=== PATIENT | female | born 1960 | race African-American/Black ===

== ENCOUNTER 2016-07-13 11:27 | Observation (INO) | payer OTHER ==
[~2016-07-13] VITALS: Ht 165.1 cm; Wt 74.4 kg
--- NOTE | 2016-07-13 11:35 | PHYS DOC ---
Adult General Chief Complaint Chief Complaint: WEAKNESS/GENERALIZED HPI HPI Patient is a 56 year old female who presents with chest discomfort. She states it started 2 days ago secondary sensation in her anterior chest, that is constant nothing makes it better or worse. She states that she's been belching more often over the last several days. She has a history of hypertension and is on some hormone replacement therapy. She does have family history of coronary disease were mom just had 4 stents in her brother had an OK recently. She denies any recent travel or leg pain. She denies any history of smoking or tobacco abuse. She's never had a stress test. Review of Systems Review of Systems Constitutional: Denies fever or chills [] Eyes: Denies change in visual acuity, redness, or eye pain [] HENT: Denies nasal congestion or sore throat [] Respiratory: Denies cough or shortness of breath [] Cardiovascular: No additional information not addressed in HPI [] GI: Denies abdominal pain, nausea, vomiting, bloody stools or diarrhea [] : Denies dysuria or hematuria [] Musculoskeletal: Denies back pain or joint pain [] Integument: Denies rash or skin lesions [] Neurologic: Denies headache, focal weakness or sensory changes [] Endocrine: Denies polyuria or polydipsia [] Current Medications Current Medications Current Medications Medications (Trade) Dose Ordered Sig/Los Start Time Stop Time Status Last Admin Dose Admin Aspirin (Artem Aspirin) 325 mg 1X ONCE 07/13/16 14:45 07/13/16 14:46 DC Ondansetron HCl (Zofran) 4 mg PRN Q8HRS PRN 07/13/16 14:45 07/14/16 14:44 Allergies Allergies Allergies Coded Allergies Type Severity Reaction Last Updated Verified lisinopril Allergy Severe Swelling 07/13/16 Yes Physical Exam Physical Exam Constitutional: Well developed, well nourished, no acute distress, non-toxic appearance. [] HENT: Normocephalic, atraumatic, bilateral external ears normal, oropharynx moist, no oral exudates, nose normal. [] Eyes: PERRLA, EOMI, conjunctiva normal, no discharge. [] Neck: Normal range of motion, no tenderness, supple, no stridor. [] Cardiovascular:Heart rate regular rhythm, no murmur [] Lungs & Thorax: Bilateral breath sounds clear to auscultation [] Abdomen: Bowel sounds normal, soft, no tenderness, no masses, no pulsatile masses. [] Skin: Warm, dry, no erythema, no rash. [] Back: No tenderness, no CVA tenderness. [] Extremities: No tenderness, no cyanosis, no clubbing, ROM intact, no edema. [] Neurologic: Alert and oriented X 3, normal motor function, normal sensory function, no focal deficits noted. [] Psychologic: Affect normal, judgement normal, mood normal. [] Current Patient Data Vital Signs Vital Signs Date Time Temp Pulse Resp B/P (MAP) Pulse Ox O2 Delivery O2 Flow Rate FiO2 07/13/16 11:40 97.9 66 18 169/85 (113) 97 Room Air 97.9 Lab Values Laboratory Tests Test 07/13/16 12:45 White Blood Count 6.3 x10^3/uL (4.0-11.0) Red Blood Count 4.26 x10^6/uL (3.50-5.40) Hemoglobin 13.3 g/dL (12.0-15.5) Hematocrit 41.0 % (36.0-47.0) Mean Corpuscular Volume 96 fL (79-100) Mean Corpuscular Hemoglobin 31 pg (25-35) Mean Corpuscular Hemoglobin Concent 32 g/dL (31-37) Red Cell Distribution Width 12.7 % (11.5-14.5) Platelet Count 223 x10^3/uL (140-400) Neutrophils (%) (Auto) 78 % (31-73) H Lymphocytes (%) (Auto) 15 % (24-48) L Monocytes (%) (Auto) 5 % (0-9) Eosinophils (%) (Auto) 1 % (0-3) Basophils (%) (Auto) 1 % (0-3) Neutrophils # (Auto) 4.9 x10^3uL (1.8-7.7) Lymphocytes # (Auto) 0.9 x10^3/uL (1.0-4.8) L Monocytes # (Auto) 0.3 x10^3/uL (0.0-1.1) Eosinophils # (Auto) 0.1 x10^3/uL (0.0-0.7) Basophils # (Auto) 0.1 x10^3/uL (0.0-0.2) Prothrombin Time 11.7 SEC (11.7-14.0) Prothrombin Time INR 0.9 (0.8-1.1) Sodium Level 140 mmol/L (136-145) Potassium Level 3.5 mmol/L (3.5-5.1) Chloride Level 103 mmol/L (98-107) Carbon Dioxide Level 27 mmol/L (21-32) Anion Gap 10 (6-14) Blood Urea Nitrogen 10 mg/dL (7-20) Creatinine 0.9 mg/dL (0.6-1.0) Estimated GFR (Cockcroft-Gault) 77.8 Glucose Level 85 mg/dL (70-99) Calcium Level 9.7 mg/dL (8.5-10.1) Magnesium Level 2.2 mg/dL (1.8-2.4) Total Bilirubin 0.9 mg/dL (0.2-1.0) Direct Bilirubin 0.2 mg/dL (0.0-0.2) Aspartate Amino Transferase (AST) 15 U/L (15-37) Alanine Aminotransferase (ALT) 17 U/L (14-59) Alkaline Phosphatase 59 U/L (46-116) Creatine Kinase 69 U/L (26-192) Creatine Kinase MB (Mass) < 0.5 ng/mL (0.0-3.6) Creatine Kinase MB Relative Index % (0-4) UY-Xki-A-Type Natriuretic Peptide 125 pg/mL (0-124) H Total Protein 8.6 g/dL (6.4-8.2) H Albumin 4.1 g/dL (3.4-5.0) Lipase 141 U/L (73-393) Thyroid Stimulating Hormone (TSH) 1.972 uIU/mL (0.358-3.74) Laboratory Tests 07/13/16 12:45 Laboratory Tests 07/13/16 12:45 EKG EKG EKG shows normal sinus with a rate of [address] elevations, T-wave inversions noted in lead 3, aVF, V1 through V3, left axis deviation, QTC 390 ms , as interpreted by me. Radiology/Procedures Radiology/Procedures [facility] [address] [place], [place] [id number] IMAGING REPORT Signed PATIENT: MICKI WILKES ACCOUNT: [id number] : 1960 LOCATION: ER AGE: 56 SEX: F EXAM STATUS: PRE ER ORD. PHYSICIAN: VALENCIA RIVAS MD REASON: chest pain PROCEDURE: PORTABLE CHEST 1V Indication chest heaviness. Single view of the chest was obtained. Comparison is made to a study 10/09/2006. There is mild cardiomegaly. There is no gross congestive heart failure. There is no consolidated pneumonia. No pleural fluid or pneumothorax is seen. Visualized bony structures appear grossly intact. IMPRESSION: Mild cardiomegaly. No acute or focal process seen in the chest DICTATED and SIGNED BY: TRUNG BRADFORD MD DATE: 07/13/16 121 CC: VALENCIA RIVAS MD ~ Impressions: Chest pain Hypertension Course & Med Decision Making Course & Med Decision Making Pertinent Labs and Imaging studies reviewed. (See chart for details) Patient has chest discomfort with T-wave inversions in lead 3, V1 through V3, chest x-ray shows mild congestion, labs are nonacute. Patient is being admitted for chest pain rule out and cardiology consultation. Patient's agreeable plans in stable condition this time. Aspirin has been given. Dragon Disclaimer Dragon Disclaimer This electronic medical record was generated, in whole or in part, using a voice recognition dictation system. Departure Departure Impression: Primary Impression: Chest pain Disposition: ADMITTED INPATIENT Admitting Physician: Mervat Chaves Condition: STABLE Problem Qualifiers Primary Impression: Chest pain Chest pain type: unspecified Qualified Codes: R07.9 - Chest pain, unspecified VALENCIA RIVAS MD July 13, 2016 11:35
--- NOTE | 2016-07-13 11:48 | EKG ---
[facility] [address] [place] [address] Test Date: 2016-07-13 Test Time: 11:38:03 Pat Name: MICKI WILKES Department: Room: Gender: F Social Security Benefits Interviewer: TIFFANIE : 1960 Requested By: VALENCIA RIVAS Order Number: [id number] Reading MD: Sharron Gallardo Measurements Intervals Felt Rate: 56 P: 12 TX: 188 QRS: -6 QRSD: 80 T: -5 QT: 402 QTc: 390 Interpretive Statements SINUS RHYTHM LEFTWARD AXIS QRS(T) CONTOUR ABNORMALITY CONSISTENT WITH ANTEROSEPTAL INFARCT AGE UNDETERMINED RI6.01 Unconfirmed report No previous ECG available for comparison Electronically Signed On 07-13-2016 18:25:48 CDT by Sharron Gallardo
[2016-07-13] MEDS ORDERED: BISO1TAB7 PO (11:50)
[2016-07-13] MEDS ORDERED: LOSA50TA6 PO (11:50)
--- NOTE | 2016-07-13 12:17 | RAD ---
Indication chest heaviness. Single view of the chest was obtained. Comparison is made to a study 10/09/2006. There is mild cardiomegaly. There is no gross congestive heart failure. There is no consolidated pneumonia. No pleural fluid or pneumothorax is seen. Visualized bony structures appear grossly intact. IMPRESSION: Mild cardiomegaly. No acute or focal process seen in the chest
[2016-07-13 12:56] LABS: BASO # 0.1 x10^3/uL (0.0-0.2); BASO % 1 % (0-3); EOS % 1 % (0-3); HEMOGLOBIN 13.3 g/dL (12.0-15.5); LYMPH # 0.9 x10^3/uL (1.0-4.8); LYMPH % 15 % (24-48); MEAN CORPUSCULAR HEMOGLOBIN 31 pg (25-35); MEAN CORPUSCULAR HGB CONC 32 g/dL (31-37); MEAN CORPUSCULAR VOLUME 96 fL (79-100); MONO % 5 % (0-9); NEUT % 78 % (31-73); PLATELET COUNT 223 x10^3/uL (140-400); RED BLOOD COUNT 4.26 x10^6/uL (3.50-5.40); RED CELL DISTRIBUTION WIDTH 12.7 % (11.5-14.5); WHITE BLOOD COUNT 6.3 x10^3/uL (4.0-11.0)
[2016-07-13 13:07] LABS: INR 0.9 (0.8-1.1); PROTHROMBIN TIME PATIENT 11.7 SEC (11.7-14.0)
[2016-07-13 13:21] LABS: CREATINE KINASE 69 U/L (26-192)
[2016-07-13 13:22] LABS: CKMB MASS < 0.5 ng/mL (0.0-3.6)
[2016-07-13 13:41] LABS: CALCIUM 9.7 mg/dL (8.5-10.1); CREATININE 0.9 mg/dL (0.6-1.0); GFR 77.8; POTASSIUM 3.5 mmol/L (3.5-5.1)
[2016-07-13 13:48] LABS: ALBUMIN 4.1 g/dL (3.4-5.0); DIRECT BILIRUBIN 0.2 mg/dL (0.0-0.2); MAGNESIUM 2.2 mg/dL (1.8-2.4); TOTAL BILIRUBIN 0.9 mg/dL (0.2-1.0); TOTAL PROTEIN 8.6 g/dL (6.4-8.2)
[2016-07-13] MEDS ORDERED: ASPIRIN 325 MG TABLET PO ONE (14:45)
[2016-07-13] MEDS ORDERED: ONDANSETRON PF 4 MG/2 ML VIAL. IV PRN (14:45)
--- NOTE | 2016-07-13 15:06 | PDOC1 ---
History and Physical Date of Admission Date of Admission DATE: 07/13/16 TIME: 15:01 Identification/Chief Complaint Chief Complaint CP Problems: Source Source: Caregiver, Chart review, Patient History of Present Illness History of Present Illness 56 y.o pleasant AA female, hx HTN, coems in bec of 2 day hx intermittent substernal CP, at rest, no identifiable or alleviating factors, strong fam hx CAD brother and mother (none younger than age 55), Duration is continuous, no associated diaphoresis or syncopal sxs, NOn smoker, non drinker, has a heart murmur though audible grade 4/6 at sternal border which seems not new to her, EKg shows t wave inversion but CKMB is neg, trop pending, CArds has been consulted and is planned for stress test, has never had MPI done before She describes the pain as heavy sensation like someone sitting on her chest She is CP free at ER watching tv SBp was 140s on arrival Past Medical History Cardiovascular: HTN Past Surgical History Past Surgical History: No pertinent history Family History Family History: Heart Disease, High Cholestrol, Hypertension Social History Smoke: No ALCOHOL: none Drugs: None Current Problem List Problem List Problems Medical Problems: (1) Chest pain Status: Acute Problems: Current Medications Current Medications Current Medications Aspirin (Artem Aspirin) 325 mg 1X ONCE PO ; Start 07/13/16 at 14:45; Stop at 14:46; Status DC Ondansetron HCl (Zofran) 4 mg PRN Q8HRS PRN IV NAUSEA/VOMITING; Start 07/13/16 at 14:45; Stop 07/14/16 at 14:44 Active Scripts Active Reported Losartan Potassium 50 Mg Tablet 50 Mg PO DAILY Bisoprolol-Hctz 10-6.25 Mg Tab (Bisoprolol Fumarate/Hctz) 1 Each Tablet 1 Tab PO DAILY Allergies Allergies: Coded Allergies: lisinopril (Verified Allergy, Severe, Swelling, 07/13/16) ROS General: No: Chills, Night Sweats, Fatigue, Malaise, Appetite, Other PSYCHOLOGICAL ROS: No: Anxiety, Behavioral Disorder, Concentration difficultie , Decreased libido, Depression, Disorientation, Hallucinations, Hostility, Irritablity, Memory difficulties, Mood Swings, Obsessive thoughts, Physical abuse, Sexual abuse, Sleep disturbances, Suicidal ideation, Other Eyes: No Blurry vision, No Decreased vision, No Double vision, No Dry eyes, No Excessive tearing, No Eye Pain, No Itchy Eyes, No Loss of vision, No Photophobia , No Scotomata, No Uses contacts, No Uses glasses, No Other HEENT: No: Heacaches, Visual Changes, Hearing change, Nasal congestion, Nasal discharge, Oral lesions, Sinus pain, Sore Throat, Epistaxis, Sneezing, Snoring, Tinnitus, Vertigo, Vocal changes, Other ALLERGY AND IMMUNOLOGY: No: Hives, Insect Bite Sensitivity, Itchy/Watery Eyes, Nasal Congestion, Post Nasal Drip, Seasonal Allergies, Other Hematological and Lymphatic: No: Bleeding Problems, Blood Clots, Blood Transfusions, Brusing, Night Sweats, Pallor, Swollen Lymph Nodes, Other ENDOCRINE: No: Breast Changes, Galactorrhea, Hair Pattern Changes, Hot Flashes , Malaise/lethargy, Mood Swings, Palpitations, Polydipsia/polyuria, Skin Changes , Temperature Intolerance, Unexpected Weight Changes, Other Breast: No New/Changing Breast Lumps, No Nipple changes, No Nipple discharge, No Other Respiratory: No: Cough, Hemoptysis, Orthopnea, Pleuritic Pain, Shortness of breath, SOB with excertion, Sputum Changes, Stridor, Tachypnea, Wheezing, Other Cardiovascular: No Chest Pain, No Palpitations, No Orthopnea, No Paroxysmal Noc. Dyspnea, No Edema, No Lt Headedness, No Other Gastrointestinal: No Nausea, No Vomiting, No Abdominal Pain, No Diarrhea, No Constipation, No Melena, No Hematochezia, No Other Genitourinary: No Dysuria, No Frequency, No Incontinence, No Hematuria, No Retention, No Discharge, No Urgency, No Pain, No Flank Pain, No Other, No , No , No , No , No , No , No Musculoskeletal: No Gait Disturbance, No Joint Pain, No Joint Stiffness, No Joint Swelling, No Muscle Pain, No Muscular Weakness, No Pain In:, No Swelling In:, No Other Neurological: No Behavorial Changes, No Bowel/Bladder ControlChng, No Confusion , No Dizziness, No Gait Disturbance, No Headaches, No Impaired Coord/balance, No Memory Loss, No Numbness/Tingling, No Seizures, No Speech Problems, No Tremors, No Visual Changes, No Weakness, No Other Skin: No Dry Skin, No Eczema, No Hair Changes, No Lumps, No Mole Changes, No Mottling, No Nail Changes, No Pruritus, No Rash, No Skin Lesion Changes, No Other, No Acne Physical Exam General: Alert, Oriented X3, Cooperative, No acute distress HEENT: Atraumatic, PERRLA Lungs: Clear to auscultation, Normal air movement Heart: S1S2, other (positive grade 3-4/6 systolci murmur left sternal border) Abdomen: Normal bowel sounds, Soft, No tenderness, No hepatosplenomegaly, No masses Rectal Exam: not examined PELVIC: Nml ext genitalia Extremities: No clubbing, No cyanosis, No edema, Normal pulses, No tenderness/ swelling Skin: No rashes, No breakdown, No significant lesion Neuro: Normal gait, Normal speech, Strength at 5/5 X4 ext, Normal tone, Sensation intact, Cranial nerves 3-12 NL, Reflexes 2+ Psych/Mental Status: Mental status NL, Mood NL Vitals Vitals Vital Signs Date Time Temp Pulse Resp B/P (MAP) Pulse Ox O2 Delivery O2 Flow Rate FiO2 07/13/16 11:40 97.9 66 18 169/85 (113) 97 Room Air 97.9 Labs Labs Laboratory Tests Test 07/13/16 12:45 White Blood Count 6.3 x10^3/uL (4.0-11.0) Red Blood Count 4.26 x10^6/uL (3.50-5.40) Hemoglobin 13.3 g/dL (12.0-15.5) Hematocrit 41.0 % (36.0-47.0) Mean Corpuscular Volume 96 fL (79-100) Mean Corpuscular Hemoglobin 31 pg (25-35) Mean Corpuscular Hemoglobin Concent 32 g/dL (31-37) Red Cell Distribution Width 12.7 % (11.5-14.5) Platelet Count 223 x10^3/uL (140-400) Neutrophils (%) (Auto) 78 % (31-73) Lymphocytes (%) (Auto) 15 % (24-48) Monocytes (%) (Auto) 5 % (0-9) Eosinophils (%) (Auto) 1 % (0-3) Basophils (%) (Auto) 1 % (0-3) Neutrophils # (Auto) 4.9 x10^3uL (1.8-7.7) Lymphocytes # (Auto) 0.9 x10^3/uL (1.0-4.8) Monocytes # (Auto) 0.3 x10^3/uL (0.0-1.1) Eosinophils # (Auto) 0.1 x10^3/uL (0.0-0.7) Basophils # (Auto) 0.1 x10^3/uL (0.0-0.2) Prothrombin Time 11.7 SEC (11.7-14.0) Prothromb Time International Ratio 0.9 (0.8-1.1) Sodium Level 140 mmol/L (136-145) Potassium Level 3.5 mmol/L (3.5-5.1) Chloride Level 103 mmol/L (98-107) Carbon Dioxide Level 27 mmol/L (21-32) Anion Gap 10 (6-14) Blood Urea Nitrogen 10 mg/dL (7-20) Creatinine 0.9 mg/dL (0.6-1.0) Estimated GFR (Cockcroft-Gault) 77.8 Glucose Level 85 mg/dL (70-99) Calcium Level 9.7 mg/dL (8.5-10.1) Magnesium Level 2.2 mg/dL (1.8-2.4) Total Bilirubin 0.9 mg/dL (0.2-1.0) Direct Bilirubin 0.2 mg/dL (0.0-0.2) Aspartate Amino Transf (AST/SGOT) 15 U/L (15-37) Alanine Aminotransferase (ALT/SGPT) 17 U/L (14-59) Alkaline Phosphatase 59 U/L (46-116) Creatine Kinase 69 U/L (26-192) Creatine Kinase MB (Mass) < 0.5 ng/mL (0.0-3.6) Creatine Kinase MB Relative Index % (0-4) KL-Twx-L-Type Natriuretic Peptide 125 pg/mL (0-124) Total Protein 8.6 g/dL (6.4-8.2) Albumin 4.1 g/dL (3.4-5.0) Lipase 141 U/L (73-393) Thyroid Stimulating Hormone (TSH) 1.972 uIU/mL (0.358-3.74) Laboratory Tests Test 5/7/17 12:45 White Blood Count 6.3 x10^3/uL (4.0-11.0) Red Blood Count 4.26 x10^6/uL (3.50-5.40) Hemoglobin 13.3 g/dL (12.0-15.5) Hematocrit 41.0 % (36.0-47.0) Mean Corpuscular Volume 96 fL (79-100) Mean Corpuscular Hemoglobin 31 pg (25-35) Mean Corpuscular Hemoglobin Concent 32 g/dL (31-37) Red Cell Distribution Width 12.7 % (11.5-14.5) Platelet Count 223 x10^3/uL (140-400) Neutrophils (%) (Auto) 78 % (31-73) Lymphocytes (%) (Auto) 15 % (24-48) Monocytes (%) (Auto) 5 % (0-9) Eosinophils (%) (Auto) 1 % (0-3) Basophils (%) (Auto) 1 % (0-3) Neutrophils # (Auto) 4.9 x10^3uL (1.8-7.7) Lymphocytes # (Auto) 0.9 x10^3/uL (1.0-4.8) Monocytes # (Auto) 0.3 x10^3/uL (0.0-1.1) Eosinophils # (Auto) 0.1 x10^3/uL (0.0-0.7) Basophils # (Auto) 0.1 x10^3/uL (0.0-0.2) Prothrombin Time 11.7 SEC (11.7-14.0) Prothromb Time International Ratio 0.9 (0.8-1.1) Sodium Level 140 mmol/L (136-145) Potassium Level 3.5 mmol/L (3.5-5.1) Chloride Level 103 mmol/L (98-107) Carbon Dioxide Level 27 mmol/L (21-32) Anion Gap 10 (6-14) Blood Urea Nitrogen 10 mg/dL (7-20) Creatinine 0.9 mg/dL (0.6-1.0) Estimated GFR (Cockcroft-Gault) 77.8 Glucose Level 85 mg/dL (70-99) Calcium Level 9.7 mg/dL (8.5-10.1) Magnesium Level 2.2 mg/dL (1.8-2.4) Total Bilirubin 0.9 mg/dL (0.2-1.0) Direct Bilirubin 0.2 mg/dL (0.0-0.2) Aspartate Amino Transf (AST/SGOT) 15 U/L (15-37) Alanine Aminotransferase (ALT/SGPT) 17 U/L (14-59) Alkaline Phosphatase 59 U/L (46-116) Creatine Kinase 69 U/L (26-192) Creatine Kinase MB (Mass) < 0.5 ng/mL (0.0-3.6) Creatine Kinase MB Relative Index % (0-4) BI-Vyq-H-Type Natriuretic Peptide 125 pg/mL (0-124) Total Protein 8.6 g/dL (6.4-8.2) Albumin 4.1 g/dL (3.4-5.0) Lipase 141 U/L (73-393) Thyroid Stimulating Hormone (TSH) 1.972 uIU/mL (0.358-3.74) VTE Prophylaxis Ordered VTE Prophylaxis Devices: Yes VTE Pharmacological Prophylaxi: Yes Assessment/Plan Assessment/Plan 1. CP r./o ACS 2. HTN 3. HEart murmur PLAN: Echo Cards consult Cycle CE NPO post MN for MPI champ jackson nd ER HECTOR Nicholas MD July 13, 2016 15:06
[2016-07-13 16:00] VITALS: BP 171/82
--- NOTE | 2016-07-13 18:52 | ACF ---
Admission Forms Criteria CARDIOLOGY GRG Clinical Indications for Admission to Inpatient Care ( Place 'X' for any and all applicable criteria): Hospital admission is needed for appropriate care of the patient because of ANY ONE of the following (1): [ ] I. Hemodynamic instability as indicated by ALL of the following (1)(2)(3) (4)(5) [ ]a) Vital signs or other findings not as expected for chronic patient condition or baseline [ ]b) Instability indicated by ANY ONE of the following: [ ]i) Hypotension [ ]ii) Symptomatic Tachycardia unresponsive to treatment ( e.g., analgesia, fluids, sedation as indicated) [ ]iii) Inadequate perfusion indicated by ANY ONE of the following: [ ] 1) Lactic acidosis (> 2 mmol/L) [ ] 2) New abnormal capillary refill (> 3 seconds) [ ] 3) Reduced urine output [ ] 4) New altered mental status [ ]iv) Orthostatic vital sign changes unresponsive to treatment (e.g., fluids) [ ]v) IV inotropic or vasopressor medication required to maintain adequate blood pressure or perfusion [ ] II. Severe heart failure as indicated by ANY ONE of the following(17)(18) [ ]a) Respiratory distress [ ]b) Hypotension [ ]c) Anasarca (refractory to outpatient therapy) [ ]d) Cardiac arrhythmias of immediate concern [ ]e) Myocardial ischemia [ ] III. Cardiac arrhythmias or findings of immediate concern indicated by ANY ONE of the following (19)(20): [ ] a) Heart rhythms that are inherently dangerous or unstable indicated by ANY ONE of the following (21)(22)(23): [ ] i) Resuscitated ventricular fibrillation or cardiac arrest [ ] ii) Ventricular escape rhythm [ ] iii) Sustained ventricular tachycardia (30 seconds or more of ventricular rhythm at greater than 100 beats per minute) [ ] iv) Nonsustained ventricular tachycardia and ANY ONE of the following: [ ] 1) Suspected cardiac ischemia as cause or consequence of ventricular tachycardia [ ] 2) In setting of acute myocarditis [ ] b) Unstable cardiac conduction defects indicated by ANY ONE of the following(23)(24)(25) [ ] i) Type II second-degree atrioventricular block [ ]ii) Third-degree atrioventricular block [ ]iii) New-onset left bundle branch block with suspected myocardial ischemia [ ]c) Any heart rhythm and ANY ONE of the following (21)(22)(26)(27) (28) [ ] i) Continuous long-term ECG monitoring needed (e.g., initiation of drug requiring monitoring for more than 24 hours) [ ] ii) Patient has automatic implanted cardioverter defibrillator that is repeatedly firing, malfunctioning, or in need of immediate adjustment of settings beyond the scope of ambulatory or observation care [ ]d) Heart rhythms of concern due to ANY ONE of the following: [ ] i) Hypotension [ ] ii) Respiratory distress [ ] iii) Association with other significant symptoms (e.g., bradycardia with syncope or ongoing dizziness, supraventricular tachycardia with chest pain (14)(15)(17) [ ] IV. Monitoring for cardiac contusion beyond the scope of observation care needed [A](30)(31)(32) [ ] V. Surgical or device complication (e.g., valve replacement complication , pacemaker dysfunction) (35)(41)(44)(45)(46) [ ] . Inpatient palliative care needed. [B](49) Also use Inpatient Palliative Care Criteria [ ] VII. Nonbacterial thrombotic (marantic) endocarditis (36)(43)(47)(48) [X] VIII. Cardiology condition, symptom, or finding for which emergency and observation care has failed or are not considered appropriate. [ ] IX. Acute valvular disease requiring inpatient as indicated by ANY ONE of the following (41) [ ]a) Acute valvular regurgitation (42) [ ]b) Noninfectious valvulitis (43) [ ]c) Obstructive valve thrombosis [ ]d) Paravalvular leak [ ]e) Other significant valvular disorder remaining after emergency or observation level of care (as appropriate) [ ]X. Pericardial disease requiring inpatient treatment as indicated by ANY ONE of the following (33)(34)(35)(36)(37) [ ]a) Suspected tamponade (38)(39)(40) [ ]b) Hemopericardium [ ]c) Other significant pericardial disorder remaining after emergency or observation level of care (as appropriate) [ ] XI. Cardiac ischemia beyond scope of emergency and observation care. [ ] XII. Hypertension requiring inpatient treatment as indicated by ANY ONE of the following (6)(7)(8) [ ]a) SBP greater than 220 mm Hg or DBP greater than 120 mmHg despite treatment [ ]b) SBP greater than 140 mm Hg or DBP greater than 100 mm Hg with evidence of acute end organ damage as indicated by ANY ONE of the following [ ] i) Encephalopathy [ ] ii) Acute renal failure as indicated by new onset of ANY ONE of the following (9)(10)(11)(12)(13) [ ]1) 3-fold rise in serum creatinine from baseline [ ]2) Serum creatinine greater than 4 mg/dL ( 354 micromoles/L) with acute rise greater than 0.5 mg/dL (44.2 micromoles/L) [ ]3) Reduction of more than 75% in estimated glomerular filtration rate from baseline [ ]4) Estimated glomerular filtration rate less than 35 mL/min/1.73m2 (0.59 mL/sec/1.73m2) in child up to 18 years of age [ ]5) Cessation of urine output indicated by ALL of the following [ ]A. Adequate volume status [ ]B. Inadequate urine output as indicated by ANY ONE of the following [ ]a. Urine output less than 0.3 mL/kg/hr for 24 hours [ ]b. Anuria (urine output less than 0.1 mL/kg/hr) for 12 hours [ ] iii) Aortic dissection [ ] iv) Myocardial Ischemia [ ] v) Left ventricular heart failure [ ]vi) Retinal Hemorrhage [ ]vii) Other significant finding [ ]c) Hypertension in child requiring inpatient treatment as indicated by ALL of the following(14)(15)(16) [ ] i) Outpatient treatment not effective, not available, or not appropriate [ ]ii) SBP or DBP greater than 95th percentile for age [ ]iii) Evidence of acute end organ damage as indicated by ANY ONE of the following [ ]1) Altered mental status [ ]2) Acute renal failure as indicated by new onset of ANY ONE of the following(9)(10)(11)(12)(13) [ ]A. 3-fold rise in serum creatinine from baseline [ ]B. Serum creatinine greater than 4 mg/dL (354 micromoles/L) with acute rise greater than 0.5 mg/dL (44.2 micromoles/L) [ ]C. Reduction of more than 75% in estimated glomerular filtration rate from baseline [ ]D. Estimated glomerular filtration rate less than 35 mL/min/1.73m2 (0.59 mL/sec/1.73m2) in child up to 18 years of age [ ]E. Cessation of urine output indicated by ALL of the following [ ]a. Adequate volume status [ ]b. Inadequate urine output as indicated by ANY ONE of the following [ ]i) Urine output less than 0.3 mL/kg/hr for 24 hours [ ]ii) Anuria ( urine output less than 0.1 mL/kg/hr) for 12 hours [ ]3) Severe headache [ ]4) Visual disturbance [ ]5) Retinal hemorrhage [ ]6) Other significant finding [ ]XIII. Complications of transplanted heart indicated by ANY ONE of the following(61): [ ]a) Acute graft rejection requiring inpatient management (eg, intravenous immunosuppression)(62)(63) [ ]b) Acute graft heart failure indicated by ANY ONE of the following(64): [ ]i) Hemodynamic instability [ ]ii) Cardiac arrhythmias of immediate concern [ ]iii) Pulmonary edema that is very severe (eg, mechanical ventilation needed, imminent or likely, need for 100% oxygen to keep oxygen saturation above 90%) [ ]iv) Pulmonary edema that is persistent as indicated by ALL of the following: [ ]1) New need for oxygen therapy to keep oxygen saturation above 90% (or increased FiO2 need from baseline) [ ]2) Has not improved sufficiently with emergency department or observation care IV diuretics or other heart failure treatments[E] [ ]v) Altered mental status that is severe or persistent [ ]vi) Increased creatinine (new on laboratory test) with reduction of more than 50% in estimated glomerular filtration rate from baseline [ ]vii) Progressively (ongoing) rising creatinine (known from past laboratory test) with reduction of more than 25% in estimated glomerular filtration rate from baseline [ ]viii) Acute renal failure [ ]ix) Acute peripheral ischemia (eg, examination shows pulseless, cool, mottled, or cyanotic extremity) [ ]x) Pulmonary artery catheter monitoring needed [ ]xi) Other sign or symptom of heart failure requiring inpatient treatment (ie, too severe or not responsive to outpatient and observation care treatment) [ ]c) Infection requiring inpatient management (eg, Hemodynamic instability, need for intravenous antimicrobial treatment)(66)(67)(68)(69)(70) [ ]d) Cardiac allograft vasculopathy requiring inpatient management ( eg evidence of cardiac ischemia)(71) [ ]e) Other complication of transplanted heart (eg, stroke, severe pulmonary hypertension, severe valvular dysfunction) requiring inpatient management(72) The original [facility] content created by [facility] has been revised. The portions of the content which have been revised are identified through the use of italic text or in bold, and [facility] has neither reviewed nor approved the modified material. All other unmodified content is copyright [facility]. Please see references footnoted in the original [facility] edition 2016 Admission Criteria Met?: Yes SHARI DICK July 13, 2016 18:52
[2016-07-13 19:00] VITALS: BP 138/90
[2016-07-13] MEDS ORDERED: [UNRECOGNIZED DRUG - OTHER] (20:04)
[2016-07-13 23:00] VITALS: BP 135/81
[2016-07-14 03:00] VITALS: BP 132/86
[2016-07-14 04:05] LABS: BASO % 1 % (0-3); EOS % 3 % (0-3); HEMATOCRIT 34.9 % (36.0-47.0); HEMOGLOBIN 11.4 g/dL (12.0-15.5); LYMPH # 1.3 x10^3/uL (1.0-4.8); LYMPH % 24 % (24-48); MEAN CORPUSCULAR HEMOGLOBIN 32 pg (25-35); MEAN CORPUSCULAR HGB CONC 33 g/dL (31-37); MEAN CORPUSCULAR VOLUME 97 fL (79-100); MONO % 8 % (0-9); NEUT % 65 % (31-73); PLATELET COUNT 192 x10^3/uL (140-400); RED BLOOD COUNT 3.61 x10^6/uL (3.50-5.40); RED CELL DISTRIBUTION WIDTH 12.4 % (11.5-14.5); WHITE BLOOD COUNT 5.3 x10^3/uL (4.0-11.0)
[2016-07-14 04:21] LABS: CALCIUM 8.8 mg/dL (8.5-10.1); CREATININE 0.8 mg/dL (0.6-1.0); GFR 89.1; POTASSIUM 3.5 mmol/L (3.5-5.1)
[2016-07-14 07:00] VITALS: BP 139/88
[2016-07-14] MEDS ORDERED: ATENOLOL 50 MG TABLET. PO SCH (09:00)
[2016-07-14] MEDS ORDERED: hydroCHLOROthiazide 25 MG TABLET PO SCH (09:00)
[2016-07-14] MEDS ORDERED: LOSARTAN POTASSIUM 50 MG TABLET. PO SCH (09:00)
[2016-07-14] MEDS ORDERED: HCTZ PO SCH (09:00)
[2016-07-14] MEDS ORDERED: BISOPROLOL FUMARATE PO SCH (09:00)
--- NOTE | 2016-07-14 09:04 | PDOC2 ---
NEETU TRACY PHYSICIAN OFFICE ASSISTANT 07/14/16 0904: CARDIAC CONSULT DATE OF CONSULT Date of Consult DATE: 07/14/16 TIME: 08:58 REASON FOR CONSULT Reason for Consult: Chest pain REFERRING PHYSICIAN Referring Physician: Elham SOURCE Source: Chart review, Patient HISTORY OF PRESENT ILLNESS HISTORY OF PRESENT ILLNESS This is a pleasant 56 yo female admitted for complains of chest pain. Reports that she has been belching a lot since the last 4 days. Actually had some episodes when she tried to take a deep breath and felt like she could not take in air. Reports that during this time she also was having a nonradiating mid chest pressure and tightness. Sometimes felt like she has some palpitations but with all of these symptoms she felt that it is more anxiety. No nausea or vomiting. Heractivity is as follows 2-4 miles 4 x weekly with tolerance and no significant WILSON. Reports that also during those times that she was having symptoms she was also having MALDONADO mainly at her forehead which was dull not associated with auditory or visual disturbances and no facial tingling. Denies any hx of migraine but she does take progesterone/estradiol treatment and is a nonsmoker. She blames the MALDONADO from her BP which was running 140-150/90 at that time but she was suspecting possibly from ASA use which she only took when she was having her CP. She does take her medications regularly, denies any excessive caffeinated beverage use, no recreational drug use. No hx of GERD, PUD, VTE, falls, injury, or any recent long distance travels. However she has been noted with MIRIAM symptoms including snoring, daytime fatigue and with her MALDONADO. Spouse is suspicious also of MIRIAM as he recorded her sleeping. PAST MEDICAL HISTORY Cardiovascular: HTN Pulmonary: No pertinent hx CENTRAL NERVOUS SYSTEM: Other (No pertinent history) GI: No pertinent hx Heme/Onc: No pertinent hx Hepatobiliary: No pertinent hx Psych: No pertinent hx Musculoskeletal: Osteoarthritis Rheumatologic: No pertinent hx Infectious disease: No pertinent hx Renal/: Other (menopausal/hot flashes) Endocrine: No pertinent hx Dermatology: No pertinent hx PAST SURGICAL HISTORY Past Surgical History: Tonsillectomy FAMILY HISTORY Family History: Coronary Artery Disease (2 brother and mother with 1 brother young noted with heart inflammation) SOCIAL HISTORY Smoke: No ALCOHOL: occassional Drugs: None Lives: with Family CURRENT MEDICATIONS CURRENT MEDICATIONS Current Medications Medications (Trade) Dose Ordered Sig/Los Route PRN Reason Start Time Stop Time Status Last Admin Dose Admin Aspirin (Artem Aspirin) 325 mg 1X ONCE PO 07/13/16 14:45 07/13/16 14:46 DC 07/13/16 15:09 ALLERGIES ALLERGIES: Coded Allergies: lisinopril (Verified Allergy, Severe, Swelling, 07/13/16) ROS Review of System 14 point ROS evaluated with pertinent positives noted per HPI PHYSICAL EXAM General: Alert, Oriented X3, Cooperative, No acute distress HEENT: Atraumatic, Mucous membr. moist/pink Lungs: Clear to auscultation, Normal air movement Heart: Regular rate (SR), Normal S1, Normal S2, Other (3/6 systolic murmur to LLS border) Abdomen: Soft, No tenderness Extremities: No cyanosis, No edema Skin: No breakdown, No significant lesion Neuro: Normal speech, Sensation intact Psych/Mental Status: Mental status NL, Mood NL MUSCULOSKELETAL: Osteoarthritic changes both hands VITALS VITALS Vital Signs Date Time Temp Pulse Resp B/P (MAP) Pulse Ox O2 Delivery O2 Flow Rate FiO2 07/14/16 07:00 97.8 60 20 139/88 (105) 96 Room Air 97.8 LABS Lab: Laboratory Tests Test 07/13/16 12:45 07/13/16 14:33 07/13/16 20:30 07/14/16 02:55 White Blood Count 6.3 x10^3/uL (4.0-11.0) 5.3 x10^3/uL (4.0-11.0) Red Blood Count 4.26 x10^6/uL (3.50-5.40) 3.61 x10^6/uL (3.50-5.40) Hemoglobin 13.3 g/dL (12.0-15.5) 11.4 g/dL (12.0-15.5) Hematocrit 41.0 % (36.0-47.0) 34.9 % (36.0-47.0) Mean Corpuscular Volume 96 fL (79-100) 97 fL (79-100) Mean Corpuscular Hemoglobin 31 pg (25-35) 32 pg (25-35) Mean Corpuscular Hemoglobin Concent 32 g/dL (31-37) 33 g/dL (31-37) Red Cell Distribution Width 12.7 % (11.5-14.5) 12.4 % (11.5-14.5) Platelet Count 223 x10^3/uL (140-400) 192 x10^3/uL (140-400) Neutrophils (%) (Auto) 78 % (31-73) 65 % (31-73) Lymphocytes (%) (Auto) 15 % (24-48) 24 % (24-48) Monocytes (%) (Auto) 5 % (0-9) 8 % (0-9) Eosinophils (%) (Auto) 1 % (0-3) 3 % (0-3) Basophils (%) (Auto) 1 % (0-3) 1 % (0-3) Neutrophils # (Auto) 4.9 x10^3uL (1.8-7.7) 3.4 x10^3uL (1.8-7.7) Lymphocytes # (Auto) 0.9 x10^3/uL (1.0-4.8) 1.3 x10^3/uL (1.0-4.8) Monocytes # (Auto) 0.3 x10^3/uL (0.0-1.1) 0.4 x10^3/uL (0.0-1.1) Eosinophils # (Auto) 0.1 x10^3/uL (0.0-0.7) 0.2 x10^3/uL (0.0-0.7) Basophils # (Auto) 0.1 x10^3/uL (0.0-0.2) 0.0 x10^3/uL (0.0-0.2) Prothrombin Time 11.7 SEC (11.7-14.0) Prothromb Time International Ratio 0.9 (0.8-1.1) Sodium Level 140 mmol/L (136-145) 141 mmol/L (136-145) Potassium Level 3.5 mmol/L (3.5-5.1) 3.5 mmol/L (3.5-5.1) Chloride Level 103 mmol/L (98-107) 106 mmol/L (98-107) Carbon Dioxide Level 27 mmol/L (21-32) 27 mmol/L (21-32) Anion Gap 10 (6-14) 8 (6-14) Blood Urea Nitrogen 10 mg/dL (7-20) 11 mg/dL (7-20) Creatinine 0.9 mg/dL (0.6-1.0) 0.8 mg/dL (0.6-1.0) Estimated GFR (Cockcroft-Gault) 77.8 89.1 Glucose Level 85 mg/dL (70-99) 81 mg/dL (70-99) Calcium Level 9.7 mg/dL (8.5-10.1) 8.8 mg/dL (8.5-10.1) Magnesium Level 2.2 mg/dL (1.8-2.4) Total Bilirubin 0.9 mg/dL (0.2-1.0) Direct Bilirubin 0.2 mg/dL (0.0-0.2) Aspartate Amino Transf (AST/SGOT) 15 U/L (15-37) Alanine Aminotransferase (ALT/SGPT) 17 U/L (14-59) Alkaline Phosphatase 59 U/L (46-116) Creatine Kinase 69 U/L (26-192) Creatine Kinase MB (Mass) < 0.5 ng/mL (0.0-3.6) Creatine Kinase MB Relative Index % (0-4) FN-Wsx-M-Type Natriuretic Peptide 125 pg/mL (0-124) Total Protein 8.6 g/dL (6.4-8.2) Albumin 4.1 g/dL (3.4-5.0) Lipase 141 U/L (73-393) Thyroid Stimulating Hormone (TSH) 1.972 uIU/mL (0.358-3.74) Troponin I Quantitative < 0.017 ng/mL (0.000-0.055) < 0.017 ng/mL (0.000-0.055) < 0.017 ng/mL (0.000-0.055) ASSESSMENT/PLAN ASSESSMENT/PLAN 1. Chest pain/mild cardiomegaly: mixed features. Possible anxiety/GERD 2. HTN: labile at home, currently controlled 3. HLP: new 4. MALDONADO: per PCP 5. Progesterone/estradiol therapy: for her menopausal symptoms 6. Significant family hx of CAD 7. MIRIAM features Recommendations 1. Start on statin and ECASA 81 mg for primary prevention 2. TTE and MPI today and completely rule out ischemia 3. Recommend MIRIAM workup as an outpt 4. GI prophylaxis with PPI 5. Continue on home bystolic/HCTZ/losartan therapy Problems: PRESTON RUSSELL MD 07/14/16 1518: CARDIAC CONSULT ALLERGIES ALLERGIES: Coded Allergies: lisinopril (Verified Allergy, Severe, Swelling, 07/13/16) ASSESSMENT/PLAN ASSESSMENT/PLAN Patient seen and examined. Agree with FITTING SUPERVISOR's assessment and plan Chest pain with atypical features and most probably GI etiology. Myocardial infarction ruled out. 2-D echo showed normal LV function without any wall motion abnormalities. MPI did not show any significant ischemia. Continue proton pump inhibitors. Thank you for your consultation. Problems: NEETU TRACY APRN July 14, 2016 09:04 PRESTON RUSSELL MD July 14, 2016 15:18
[2016-07-14 09:38] LABS: CHOLESTEROL/HDL RATIO 4.5
[2016-07-14] MEDS ORDERED: ASPIRIN ENTERIC COATED 81 MG TABLET.DR. PO SCH (10:30)
[2016-07-14] MEDS ORDERED: PANTOPRAZOLE 40 MG TABLET.DR. PO SCH (10:30)
[2016-07-14] MEDS ORDERED: REGADENOSON 0.4 MG/5 ML DISP.SYRIN. IV ONE (11:00)
[2016-07-14 11:20] VITALS: BP 135/84
--- NOTE | 2016-07-14 11:24 | CARD ---
APPROVED REPORT EXAM: Two-dimensional and M-mode echocardiogram with Doppler and color Doppler. Other Information Quality : Average Rhythm : NSR INDICATION Chest Pain 2D DIMENSIONS RVDd3.0 (2.9-3.5cm)Left Atrium(2D)3.8 (1.6-4.0cm) IVSd1.1 (0.7-1.1cm)Aortic Root(2D)2.7 (2.0-3.7cm) LVDd4.8 (3.9-5.9cm)LVOT Diameter2.1 (1.8-2.4cm) PWd1.1 (0.7-1.1cm)LVDs3.2 (2.5-4.0cm) FS (%) 34.3 %SV69.1 ml LVEF(%)63.3 (>50%) Aortic Valve AoV Peak Imtiaz.149.1cm/sAoV VTI30.1cm AO Peak GR.8.9mmHgLVOT Peak Imtiaz.92.2cm/s LVOT VTI 22.33cmAO Mean GR.5mmHg HUA (VMAX)2.33va0YZS (VTI)2.45cm2 Mitral Valve MV E Qtnaress41.3cm/sMV DECEL [id number] MV A Lfadcnty51.7cm/sMV E Mean Gr.1mmHg MV UOB42yvW/A Ratio0.8 MV A Ppabbrad904wdTSE (PHT)3.08cm2 TDI E/Lateral E'7.2E/Medial E'9.2 Pulmonary Valve PV Peak Nszmmxfh090.2cm/sPV Peak Grad.6mmHg RVOT VTI15.1cm Tricuspid Valve TR P. Xyfebpyh655jn/sRAP NPCKKKFC7jdGj TR Peak Gr.55ilGpCSXG96crIb Pulmonary Vein S1 Vsggckma46.4cm/sD2 Umkcvzjk37.0cm/s LEFT VENTRICLE The left ventricle is normal size. There is normal left ventricular wall thickness. Left ventricle sy stolic function is normal. The Ejection Fraction is 60-65%. There is normal LV segmental wall motion. The left ventricular diastolic function and filling is normal for age. There is no ventricular septa l defect visualized. RIGHT VENTRICLE The right ventricle is normal size. The right ventricular systolic function is normal. ATRIA The left atrium size is normal. The right atrium size is normal. The interatrial septum is intact wit h no evidence for an atrial septal defect or patent foramen ovale as noted on 2-D or Doppler imaging. AORTIC VALVE The aortic valve is normal in structure and function. The aortic valve is trileaflet. Doppler and Col or Flow revealed no significant aortic regurgitation. There is no significant aortic valvular stenosi s. MITRAL VALVE The mitral valve is normal in structure and function. There is no mitral valve stenosis. Doppler and Color Flow revealed no mitral valve regurgitation noted. TRICUSPID VALVE The tricuspid valve is normal in structure and function. Doppler and Color Flow revealed trace tricus pid regurgitation. The PA pressure was estimated at 25 mmHg. There is no tricuspid valve stenosis. PULMONIC VALVE The pulmonic valve is not well visualized. Doppler and Color Flow revealed no pulmonic valvular regur gitation. There is no pulmonic valvular stenosis. GREAT VESSELS The aortic root is normal in size. Normal pulmonary venous flow (Doppler). The IVC is normal in size and collapses >50% with inspiration. PERICARDIAL EFFUSION There is no evidence of significant pericardial effusion. Critical Notification Critical Value: No <Conclusion> Left ventricle systolic function is normal. The Ejection Fraction is 60-65%. There is normal LV segmental wall motion. Trace tricuspid regurgitation. The PA pressure was estimated at 25 mmHg. There is no evidence of significant pericardial effusion.
[2016-07-14] MEDS ORDERED: ATOR40TA PO (13:12)
--- NOTE | 2016-07-14 14:01 | RAD ---
APPROVED REPORT Test Type: Pharmacological Stress Nurse/Tech: denae joseph Test Indications: chest pain Cardiac History: HTN, SEE EHR Medications: SEE EHR Medical History: SEE EHR Resting ECG: SR Resting Heart Rate: 60 bpm Resting Blood Pressure: 128/79mmHg Pretest Chest Pain: No chest pain Nurse/Tech Notes LUNG SOUNDS CLEAR, S1S2 WNL. Consent: The procedure was explained to the patient in lay terms. Informed consent was witnessed. Yuriy eout was entered into [facility]. History and Stress Test performed by RT Donna (R) (N) Pharm. Details Pharmacologic stress testing was performed using 0.4mg per 5ml of regadenoson given intravenously ove r 7-10 seconds. Stress Symptoms NONE STATED. POST EXERCISE Max HR: 104 bpm Max Blood Pressure: 154/87mmHg Chest Pain: No. Arrhythmia: No. OCCASIONAL PVC ST Change: No. INTERPRETATION Stress EKG Conclusion: Baseline EKG showed sinus rhythm. No ischemic changes at peak stress. No arr hythmias. Imaging Protocol IMAGE PROTOCOL: Rest Tc-99m/stress Tc-99m 1 day Rest: Stress: Viability: Radiopharm.Tc99m BpcolejjwLd08e Sestamibi Jslz90kIx 32mCi Duration 15min. 10min. Img Date 07/14/2016 07/14/2016 Inj-Img Hicl94qrd. 60min. Rest Admin Site:IV - Left WristAdministrator:ANDIE Guadalupe Stress Admin Site: IV - Left WristAdministrator: RT Donna (R)(N) STRESS DATA End Diast. Vol.128.0mlAv. Heart Rate70.0bpm LVEDV index BSA2.0mlCardiac Output0.1L/min End Syst. Vol.38.0mlCO Index BSA6.3L/min LVESV index BSA1.0mlMyocardial Tagb798.0g Eject. Czpylztb61.0% Stress Rates Pk. Fill Rate2.05EDV/secLVtime Pk. Fill 125.77msec Pk. Empty Rate3.22ESV/secLVtime Pk. Vemdk494.00msec 03/11 Pk. Fill1.43EDV/sec Stress Scores Regional WT0.00Summed WT0.00 Regional WM0.00Summed WM0.00 Study quality was good. Left Ventricular size was Normal at Rest and Stress. Lung uptake was Normal. Left Ventricular ejection fraction is 70%. The rest and stress images show normal perfusion, normal contraction and thickening. LV Perf. Quant 17 Seg. SSS0.00 17 Seg. SRS1.00 17 Seg. SDS0.00 Stress Defect Extent (% LAD)0.00Rest Defect Extent (% LAD)0.00Rev. Defect Extent (% LAD)0.00 Stress Defect Extent (% LCX) 2.50Rest Defect Extent (% LCX)5.00Rev. Defect Extent (% LCX)2.50 Stress Defect Extent (% RCA)0.00Rest Defect Extent (% RCA)0.00Rev. Defect Extent (% RCA)0.00 Stress Defect Extent (% TAVON)0.90Rest Defect Extent (% TAVON)0.90Rev. Defect Extent (% TAVON)0.90 Conclusion 1. Regadenoson cardioisotope stress test did not show any evidence of ischemia or infarct. 2. Normal left ventricular systolic function with ejection fraction calculated at 70%. 3. Low risk for cardiac events.
[2016-07-14 15:04] VITALS: BP 124/85
[2016-07-14] MEDS ORDERED: ATORVASTATIN CALCIUM 40 MG TABLET. PO SCH (21:00)
--- NOTE | 2016-07-15 01:06 | DS ---
DATE OF DISCHARGE: 07/14/2016 DISCHARGE DIAGNOSES: 1. Chest pain, likely due to gastroesophageal reflux disease or anxiety. 2. Hypertension, stable. 3. Hyperlipidemia, new. BRIEF HOSPITAL COURSE: A 56-year-old female patient admitted to the hospital for belching and given her family history, the patient was admitted to the hospital for Cardiology workup during the hospitalization. She was seen by Cardiology and she had 3 sets of troponins and EKGs, which are negative for any ACS. During hospitalization, she was diagnosed with hyperlipidemia, started on Lipitor. Also, she underwent an echocardiogram, which showed normal LV ejection fraction and a nuclear stress test that was negative for any ischemic events. Today, she deemed clinically stable enough to go home and follow up with primary care doctor and continue further workup for her belching. It could be likely due to GERD. She was recommended to take weug-gbd-gbjnree proton pump inhibitors. DISCHARGE EXAMINATION: GENERAL: Alert, oriented x 3. HEART: S1, S2 present. LUNGS: Anterior chest clear. ABDOMEN: Soft, nontender. No organomegaly. EXTREMITIES: Pulses equal in all extremities. No edema. DISCHARGE DISPOSITION: Home. DISCHARGE CONDITION: Stable. DISCHARGE MEDICATION: New script, Lipitor 40 mg p.o. daily. FOLLOWUP: With primary care doctor in 1-2 weeks for further workup. Total time spent for discharge is 32 minutes for patient education, counseling, and coordination of care. VLAD MCMULLEN MD DR: RIZWANA/cinthya JOB#: [id number] / [id number] LOLI
== END 2016-07-14 16:21 | disposition home or self-care (01) ==
LOC: ER 11:27 → 5 SOUTH 14:45
PROVIDERS: ADMIT Internal Medicine; ATTEND Internal Medicine
DX: R07.89 Other chest pain (principal); E78.5 Hyperlipidemia, unspecified; K21.9 Gastro-esophageal reflux disease without esophagitis; F41.9 Anxiety disorder, unspecified; G47.33 Obstructive sleep apnea (adult) (pediatric); I11.9 Hypertensive heart disease without heart failure; M19.90 Unspecified osteoarthritis, unspecified site; Z79.890 Hormone replacement therapy; Z82.49 Family history of ischemic heart disease and other diseases of the circulatory system
CPT/HCPCS: 36415; 71010; 78452; 80048; 80061; 80076; 82553; 83690; 83735; 83880; 84443; 84484; 85027; 85610; 93005; 93017; 93306; 99285; A9500; G0378; J2785; 96374; 96375; 96376; G0379

== ENCOUNTER → 2016-08-27 | Outpatient (CLI) | payer OTHER ==
[~2016-08-27] MED LIST: ATOR40TA PO; BISO1TAB7 PO; LOSA50TA6 PO; [UNRECOGNIZED DRUG - OTHER]
--- NOTE | 2016-08-27 13:01 | KCIC ---
PELVIS COMPLETE History: Postmenopausal bleeding Comparison: None. Findings: Multiple transabdominal sonographic images of the pelvis are submitted. Uterus measured 12 x 5.1 x 7.6 cm. There is mass of the posterior right uterus in the myometrium closer to the fundus up to 2.6 x 2.6 x 3 cm. There is another posterior mass of the right measuring up to 2.4 cm. Neither ovary could be visualized. Endometrium is not thickened at 0.3 cm. No free fluid is demonstrated. Patient declined transvaginal imaging. Impression: 1. Neither ovary was visualized. Endometrium is within normal limits. 2. There are uterine masses likely due to fibroids. Electronically signed by: Colin Cardona MD (08/27/2016 12:58 PM)
== END | disposition home or self-care (01) ==
LOC: KCIC US 10:52
PROVIDERS: ATTEND Obstetrics & Gynecology
DX: N85.8 Other specified noninflammatory disorders of uterus (principal)
CPT/HCPCS: 76856

== ENCOUNTER 2016-10-30 09:26 | Day surgery (SDC) | payer OTHER ==
[~2016-10-30] VITALS: Ht 165.1 cm; Wt 78.5 kg
[~2016-10-30 09:26] MED LIST changes: +CHOL20002 PO; +HYDROmorphone 2 MG/ML VIAL IV PRN; +IV RINGERS,LACTATED 1000ML 1,000 ML IV SCH; +LIDOCAINE 1% 1 ML SYRINGE. ID PRN; +MORPHINE SULFATE 2 MG/ML DISP.SYRIN. IV PRN; +ONDANSETRON PF 4 MG/2 ML VIAL. IV PRN; +PROCHLORPERAZINE 10 MG/2 ML VIAL. IV PRN; +fentaNYL PF VIAL 100 MCG/2 ML VIAL IV PRN
[2016-10-30 10:13] LABS: BASO # 0.1 x10^3/uL (0.0-0.2); BASO % 1 % (0-3); EOS % 3 % (0-3); HEMATOCRIT 36.3 % (36.0-47.0); HEMOGLOBIN 12.5 g/dL (12.0-15.5); LYMPH # 0.9 x10^3/uL (1.0-4.8); LYMPH % 16 % (24-48); MEAN CORPUSCULAR HEMOGLOBIN 32 pg (25-35); MEAN CORPUSCULAR HGB CONC 34 g/dL (31-37); MEAN CORPUSCULAR VOLUME 94 fL (79-100); MONO % 6 % (0-9); NEUT % 73 % (31-73); PLATELET COUNT 212 x10^3/uL (140-400); RED BLOOD COUNT 3.87 x10^6/uL (3.50-5.40); RED CELL DISTRIBUTION WIDTH 12.4 % (11.5-14.5); WHITE BLOOD COUNT 5.6 x10^3/uL (4.0-11.0)
[2016-10-30] MEDS ORDERED: DEXAMETHASONE SOD PHOS 20 MG/5 ML VIAL. ONE (11:35)
[2016-10-30] MEDS ORDERED: LIDOCAINE 2% PF Vial for OR 5 ML VIAL. ONE (11:35)
[2016-10-30] MEDS ORDERED: ONDANSETRON PF 4 MG/2 ML VIAL. ONE (11:35)
[2016-10-30] MEDS ORDERED: PROPOFOL 20 ML IV ONE (11:35)
[2016-10-30] MEDS ORDERED: fentaNYL PF VIAL 100 MCG/2 ML VIAL ONE ×2 (11:36→14:14)
[2016-10-30] MEDS ORDERED: KETOROLAC 30 MG/ML INJ FOR OR. INJ ONE (13:15)
[2016-10-30] MEDS ORDERED: ePHEDrine PF IN SALINE 50 MG/5 ML DISP.SYRIN IV ONE (13:28)
[2016-10-30] MEDS ORDERED: SEVOFLURANE 31 TO 60 MINUTES. IH ONE (13:37)
--- NOTE | 2016-10-30 13:52 | PDOC ---
BRIEF OPERATIVE NOTE Pre-Op Diagnosis 1. PMB 2. Fibroids Post-Op Diagnosis SAme Procedure Performed Operative [facility] [place]. Sanders Anesthesia Type: General Blood Loss 15 ml Specimens Obtained uterine biopsy and fibroid Findings enlarged uterus with 2 cm fibroid in left cornua Complications none BERNABE SANDERS Jr, MD Oct 30, 2016 13:52
--- NOTE | 2016-10-30 13:54 | DISCH ---
DISCHARGE INSTRUCTIONS Condition on Discharge Condition on Discharge: Stable Activity After Discharge Activity Instructions for Disc: Activity as tolerated Lifting Instructions after Dis: No heavy lifting Driving Instructions after Dis: Do not drive today Diet after Discharge Diet after Discharge: Regular Contacting the DRTamra after DC Call your doctor for: Concerns you may have Follow-Up Follow up with: Dr. Sanders in 1 week. BERNABE SANDERS Jr, MD Oct 30, 2016 13:54
[2016-10-30] MEDS ORDERED: OXYC-323 PO (14:07)
[2016-10-30] MEDS: fentaNYL PF VIAL 100 MCG/2 ML VIAL IV PRN ×2 (14:18→14:34)
[2016-10-30] MEDS ORDERED: oxyCODONE/APAP 5/325 1 TAB TABLET PO ONE (14:30)
[2016-10-30 15:29] VITALS: BP 138/74
--- NOTE | 2016-10-30 15:37 | OP ---
DATE OF SURGERY: 10/30/2016 PREOPERATIVE DIAGNOSES: 1. Postmenopausal bleeding. 2. Fibroids. POSTOPERATIVE DIAGNOSES: 1. Postmenopausal bleeding. 2. Fibroids. PROCEDURE: Operative hysteroscopy. SURGEON: Bernabe Sanders MD ANESTHESIA: GETA. ESTIMATED BLOOD LOSS: 15 mL. COMPLICATIONS: None. FINDINGS: Enlarged uterus with a 2 cm fibroid on the left cornu. SUMMARY: A 56-year-old female with postmenopausal bleeding. The patient was counseled on operative hysteroscopy. The patient was counseled on risks, benefits and expectations and voiced clear understanding to proceed. DESCRIPTION OF PROCEDURE: The patient was taken to surgery suite and placed in dorsal lithotomy position. She was prepped with ChloraPrep and draped in a sterile fashion. After adequate anesthesia, a weighted speculum and curved Vanessa placed vaginally, anterior lip of the cervix grasped with a single tooth tenaculum. Cervix dilated with Anne dilators up to size 8. The TruClear hysteroscope was positioned. The right cornu demonstrated possible 2 cm size fibroid, was partially excised using the TruClear device. There were also biopsies taken of the uterine lining. The hysteroscope was removed. Single tooth tenaculum and weighted speculum were removed. The patient tolerated the procedure well and was taken to recovery room in stable condition. Sponge and needle counts correct x 3. BERNABE SANDERS MD DR: [email or web address]/cinthya JOB#: [id number] / [id number]
== END 2016-10-30 15:29 | disposition home or self-care (01) ==
LOC: SURG 09:26
PROVIDERS: ATTEND Obstetrics & Gynecology
DX: D25.9 Leiomyoma of uterus, unspecified (principal); I10 Essential (primary) hypertension; Z98.51 Tubal ligation status; Z88.8 Allergy status to other drugs, medicaments and biological substances; Z91.040 Latex allergy status; Z82.49 Family history of ischemic heart disease and other diseases of the circulatory system
CPT/HCPCS: 36415; 58555; 85025; J0690; J1100; J1885; J2405; J2704; J3010; J2001

== ENCOUNTER → 2017-04-03 | Outpatient (CLI) | payer OTHER | END | disposition home or self-care (01) | LOC: KCIC DEXA 09:10 | DX: Z12.31 Encounter for screening mammogram for malignant neoplasm of breast (principal); Z13.820 Encounter for screening for osteoporosis; M85.88 Other specified disorders of bone density and structure, other site; Z78.0 Asymptomatic menopausal state | CPT/HCPCS: 77067; 77080 ==

== ENCOUNTER → 2017-10-19 | Outpatient (CLI) | payer OTHER | END | disposition home or self-care (01) | LOC: US 12:51 | DX: N28.1 Cyst of kidney, acquired (principal); I11.9 Hypertensive heart disease without heart failure; E78.5 Hyperlipidemia, unspecified; K21.9 Gastro-esophageal reflux disease without esophagitis | CPT/HCPCS: 76700 ==

== ENCOUNTER → 2020-09-12 | Outpatient (CLI) | payer OTHER ==
[~2020-09-12] MED LIST changes: -BISO1TAB7 PO; +BISO1TAB8 PO; -CHOL20002 PO; +CHOL200059 PO; -HYDROmorphone 2 MG/ML VIAL IV PRN; -IV RINGERS,LACTATED 1000ML 1,000 ML IV SCH; -LIDOCAINE 1% 1 ML SYRINGE. ID PRN; +LOSA-73 PO; -LOSA50TA6 PO; -MORPHINE SULFATE 2 MG/ML DISP.SYRIN. IV PRN; -ONDANSETRON PF 4 MG/2 ML VIAL. IV PRN; +OXYC1TAB15 PO; -PROCHLORPERAZINE 10 MG/2 ML VIAL. IV PRN; -fentaNYL PF VIAL 100 MCG/2 ML VIAL IV PRN
--- NOTE | 2020-09-12 17:18 | RAD ---
EXAMINATION: US PELVIS COMPLETE INDICATION: 60 years, Female, menopausal bleeding COMPARISON: 08/27/2016 TECHNIQUE: Transabdominal ultrasound of the pelvis was performed with grayscale, spectral, and color doppler imaging. FINDINGS: UTERUS: Position: Anteverted Measures: 11.4 x 8.5 x 4.8 cm. Uterine/Endometrial Morphology: 2 small intramural fibroids, the largest measures 3.3 cm and the righ t posterior uterine body. Endometrial Thickness: 0.27 cm, within normal limits for postmenopausal woman. RIGHT OVARY/ADNEXA: Measures: 2.4 x 1.3 x 1.2 cm. Right Ovarian Morphology: Unremarkable. Right Ovarian Color And Spectral Doppler Flow: Normal. LEFT OVARY/ADNEXA: Measures: 2.6 x 1.3 x 0.9 cm. Left Ovarian Morphology: Unremarkable. Left Ovarian Color And Spectral Doppler Flow: Normal. OTHER: Fluid/Cul-De-Sac: No free fluid. IMPRESSION: 1. Endometrial stripe measures 0.27 cm in thickness, within normal limits for postmenopausal woman. 2. Essentially unchanged two small intramural fibroids. Electronically signed by: Gold Bobo MD (09/12/2020 5:16 PM) [id number]
== END ==
LOC: US 12:28
PROVIDERS: ATTEND Obstetrics & Gynecology
DX: Z01.411 Encounter for gynecological examination (general) (routine) with abnormal findings (principal); D25.1 Intramural leiomyoma of uterus; N81.4 Uterovaginal prolapse, unspecified; N95.0 Postmenopausal bleeding
CPT/HCPCS: 76856

== ENCOUNTER → 2021-04-12 | Outpatient (CLI) | payer OTHER ==
[~2021-04-12] MED LIST changes: -BISO1TAB8 PO; +BISO1TAB84 PO
--- NOTE | 2021-04-12 14:45 | KCIC ---
Digital Mammogram Bilateral History: Routine screening Technique: 2-D digital CC and MLO views were obtained. CAD - computer aided detection was utilize d. Comparison: Mammogram from 04/03/2017.. Findings: Breast Tissue Density B : There are scattered areas of fibroglandular density There are no suspicious masses, malignant appearing calcifications, or areas of architectural distort ion. Impression: No evidence of malignancy. Assessment: BI-RADS Category 1: Negative. Recommendation: Routine screening mammograms. The patient will receive a letter with the results in the mail. Patient information will be entered i nto the mammography reminder system with a target recall date for the next mammogram. A reminder francisco er will be generated. Electronically signed by: Marla Andrew MD (04/12/2021 2:42 PM) [id number]
--- NOTE | 2021-04-12 17:08 | KCIC ---
Bone Densitometry History: Osteopenia Findings: Bone Densitometry was performed with dual photon absorption of the lumbar spine and proximal femurs. Lumbar Spine: Bone density is 0.939 g/cm2 for L1-L4. T-score is -1.0. Z-score is -0.1. No significant change. Total left femur: Bone density is 0.759 g/cm2. T-score is -1.5. Z-score is -0.8. No significant change. IMPRESSION: Osteopenia of the left hip. World Health Organization definition of osteoporosis and osteopenia for women: normal equal s T score at or above -1.0 standard deviations; osteopenia equals T score between -1.0 and -2.5 stand lucy deviations; osteoporosis equals T score at or below -2.5 standard deviations. Electronically signed by: Krista Hewitt MD (04/12/2021 5:05 PM) [id number]
== END ==
LOC: KCIC DEXA 12:57
PROVIDERS: ATTEND Family Medicine
DX: Z12.31 Encounter for screening mammogram for malignant neoplasm of breast (principal); M85.88 Other specified disorders of bone density and structure, other site
CPT/HCPCS: 77067; 77080